=== PATIENT | female | born 1970 ===

== ENCOUNTER 2016-11-09 12:26 | Emergency (ER) | payer BC ==
[2016-11-09 12:26] VITALS: BMI 27.4
[2016-11-09 12:55] VITALS: BP 106/66; PULSE 87; RESP 20; TEMP 98; O2SAT 100
--- NOTE | 2016-11-09 13:25 | C.PDOC ---
History Of Present Illness 46 year old female presents to the ED with complaints of redness and swelling to the front of the left knee for three days. Patient denies trauma, itchiness, fever, pain with movement or weight bearing. REDNESS, SWELLING FRONT L KNEE X 3 DAYS. NO TRAUMA. NO FEVER, PAIN, ITCH. NO ASSOC W WT BEAR, MOVEMENT EXAM NAD EXT MILD SWELL ANT L KNEE AROM WO DIFF NONTEND SKIN ?INSECT BITE ANT L KNEE W MIN LOCAL ERYTHEMA. NONTEND, NO FLUCTUANCE, LYMPHANGITIS Time Seen by Provider: 11/09/16 13:01 Chief Complaint (Nursing): Lower Extremity Problem/Injury History Per: Patient History/Exam Limitations: no limitations Onset/Duration Of Symptoms: Days (3 days ) Current Symptoms Are (Timing): Still Present Recent travel outside of the [place]: No Past Medical History Reviewed: Historical Data, Nursing Documentation, Vital Signs Vital Signs: Last Vital Signs Temp 98 F 11/09/16 12:54 Pulse 87 11/09/16 12:54 Resp 20 11/09/16 12:54 BP 106/66 11/09/16 12:54 Pulse Ox 100 11/09/16 13:45 - Medical History PMH: Arthritis, Gastritis Surgical History: Back Surgery, Family History: States: Unknown Family Hx - Social History Hx Alcohol Use: No Hx Substance Use: No - Immunization History Hx Tetanus Toxoid Vaccination: No Hx Influenza Vaccination: No Hx Pneumococcal Vaccination: No Review Of Systems Constitutional: Negative for: Fever, Chills Cardiovascular: Negative for: Chest Pain, Palpitations Respiratory: Negative for: Cough, Shortness of Breath Gastrointestinal: Negative for: Nausea, Vomiting Musculoskeletal: Positive for: Other (left knee redness and swelling ) Neurological: Negative for: Weakness, Numbness Physical Exam - Physical Exam Appears: Non-toxic, No Acute Distress Skin: Warm, Dry, Other (Questionable insect bite to anterior left knee ) Head: Atraumatic, Normacephalic Eye(s): bilateral: Normal Inspection, PERRL, EOMI Neck: Supple Chest: Symmetrical, No Deformity Cardiovascular: Rhythm Regular, No Murmur Respiratory: Normal Breath Sounds, No Rales, No Rhonchi, No Wheezing Extremity: Normal ROM (AROM without difficulty ), No Tenderness, No Pedal Edema , No Calf Tenderness, Capillary Refill (good capillay refill, less than two seconds ), No Deformity, Swelling (to anterior left knee with minimal local erythema ), Other (No fluctuance or lymphangitis ) ED Course And Treatment O2 Sat by Pulse Oximetry: 100 (room air ) Disposition Counseled Patient/Family Regarding: Diagnosis, Need For Followup, Rx Given - Disposition Referrals: Clinic,Med Surg [Primary Care Provider] - Disposition: HOME/ ROUTINE Disposition Time: 13:45 Condition: GOOD Prescriptions: Cephalexin [cephalexin] 500 mg PO Q6 #28 cap Instructions: Cellulitis (ED) Forms: [employer] (Peruvian) Print Language: SOUTH KOREAN - Clinical Impression Clinical Impression: Cellulitis - Scribe Statement The provider has reviewed the documentation as recorded by the Scribe Minerva Stuart All medical record entries made by the Jjibanabel were at my direction and personally dictated by me. I have reviewed the chart and agree that the record accurately reflects my personal performance of the history, physical exam, medical decision making, and the department course for this patient. I have also personally directed, reviewed, and agree with the discharge instructions and disposition.
== END 2016-11-09 14:25 | disposition home or self-care (01) ==
LOC: SUPCPDRO 12:26 → C.ER 12:26
DX: L03.116 Cellulitis of left lower limb (principal)

== ENCOUNTER 2018-06-06 15:04 | Emergency (ER) | payer BC ==
[2018-06-06 16:15] VITALS: BMI 35.2
--- NOTE | 2018-06-06 16:57 | C.PDOC ---
History Of Present Illness 48 year old female presents to ED with complaint of back pain and swelling to the bilateral feet and ankles for the past 2 days. Patient had spinal fusion surgery 3 months ago. She states that she has been taking Lyrica for her pain, but did not take it today. Patient states that she has more pain with walking, so she doesn't walk very much. Patient denies numbness, weakness, and urinary/ bowel incontinence. Time Seen by Provider: 06/06/18 16:23 Chief Complaint (Nursing): Lower Extremity Problem/Injury History Per: Patient History/Exam Limitations: no limitations Onset/Duration Of Symptoms: Days (2) Current Symptoms Are (Timing): Still Present Past Medical History Reviewed: Historical Data, Nursing Documentation, Vital Signs Vital Signs: Last Vital Signs Temp 98.1 F 06/06/18 16:16 Pulse 79 06/06/18 16:16 Resp 17 06/06/18 16:16 BP 117/79 06/06/18 16:16 Pulse Ox 100 06/06/18 16:16 - Medical History PMH: Arthritis, Fibromyalgia, Gastritis Surgical History: Back Surgery ([place], [place]), Family History: States: Unknown Family Hx - Social History Hx Alcohol Use: No Hx Substance Use: No - Immunization History Hx Tetanus Toxoid Vaccination: No Hx Influenza Vaccination: No Hx Pneumococcal Vaccination: No Review Of Systems Genitourinary: Negative for: Incontinence Musculoskeletal: Positive for: Back Pain, Leg Pain (swelling to the bilateral feet and ankles) Neurological: Negative for: Weakness, Numbness Physical Exam - Physical Exam Appears: Well, Non-toxic, No Acute Distress Skin: Normal Color, Warm, Dry Head: Atraumatic, Normacephalic Neck: Normal ROM, Supple Chest: Symmetrical, No Deformity Cardiovascular: Rhythm Regular, No Murmur Respiratory: No Accessory Muscle Use, No Rales, No Rhonchi, No Wheezing Gastrointestinal/Abdominal: Soft, No Tenderness Extremity: Capillary Refill (<2 seconds), Other (trace pedal edema along the bilateral ankles) Extremity: Bilateral: Atraumatic, Normal Color And Temperature, Normal ROM Pulses: Left Dorsalis Pedis: Normal, Right Dorsalis Pedis: Normal Neurological/Psych: Oriented x3, Normal Speech, Normal Cognition, Normal Motor, Normal Sensation Gait: Steady ED Course And Treatment - Laboratory Results Result Diagrams: 06/06/18 17:30 06/06/18 17:30 O2 Sat by Pulse Oximetry: 100 (in RA) Medical Decision Making Medical Decision Making: Plan: Labs ordered with CMP, CBC, and d-dimer Patient given Decadron and Toradol Disposition - Disposition Referrals: [facility] [Outside] Disposition: HOME/ ROUTINE Disposition Time: 18:55 Condition: STABLE Additional Instructions: COME TOMORROW AT 8AM FOR VENOUS DOPPLER OF THE BILATERAL LOWER EXTREMITY. D- DIMER WAS (+) RETURN SOONER IF WORSENED. Instructions: Deep Vein Thrombosis (Blood Clots in the Legs) Forms: [employer] (Vietnamese) Print Language: LIBERIAN - Clinical Impression Clinical Impression: Leg edema - PA / CONTROL SYSTEMS SPECIALIST / Resident Statement MD/DO has reviewed & agrees with the documentation as recorded. (Dulce Horta) - Scribe Statement The provider has reviewed the documentation as recorded by the Scribe (Dulce Horta) All medical record entries made by the Scribe were at my direction and personally dictated by me. I have reviewed the chart and agree that the record accurately reflects my personal performance of the history, physical exam, medical decision making, and the department course for this patient. I have also personally directed, reviewed, and agree with the discharge instructions and disposition.
[2018-06-06] MEDS ORDERED: Dexamethasone 4 mg/1 ml IVP STA (17:27)
[2018-06-06] MEDS ORDERED: Dexamethasone 4 mg/1 ml ONE (17:35)
[2018-06-06 17:38] LABS: BASO % 0.4 % (0.0-2.0); EOS # 0.2 K/uL (0.0-0.7); HEMOGLOBIN 12.9 g/dL (11.0-16.0); LYMPH # 2.4 K/uL (1.0-4.3); MEAN CELL VOLUME 89.1 fL (81.0-99.0); MEAN CORPUSCULAR HEMOGLOBIN 30.8 pg (27.0-31.0); MEAN CORPUSCULAR HGB CONC 34.6 g/dL (33.0-37.0); MEAN PLATELET VOLUME 8.7 fL (7.2-11.7); MONO # 0.5 K/uL (0.0-0.8); MONO % 6.1 % (0.0-10.0); NEUT # 5.6 K/uL (1.8-7.0); NEUT % 64.5 % (50.0-75.0); NRBC % 0.1 % (0.0-2.0); RBC 4.18 Mil/uL (3.80-5.20); RED CELL DISTRIBUTION WIDTH 13.4 % (11.5-14.5); WHITE BLOOD COUNT 8.7 K/uL (4.8-10.8)
[2018-06-06 17:46] LABS: INR 1.1; PROTHROMBIN TIME 11.5 SECONDS (9.7-12.2)
[2018-06-06 17:51] LABS: ALB/GLOB RATIO 1.3 (1.0-2.1); ALBUMIN 4.2 g/dL (3.5-5.0); ALT/SGPT 28 U/L (9-52); AST/SGOT 36 U/L (14-36); BLOOD UREA NITROGEN 10 mg/dL (7-17); CALCIUM 9.5 mg/dl (8.6-10.4); GFR NON-AFRICAN AMERICAN > 60
[2018-06-06 18:02] LABS: B-TYPE NATRIURETIC PEPTIDE 43.4 pg/mL (0-450)
[2018-06-06] MEDS ORDERED: Enoxaparin 40 mg Syringe SC STA (18:34)
[2018-06-06] MEDS ORDERED: Enoxaparin 80 mg Syringe ONE (19:04)
[2018-06-06 19:21] VITALS: BP 136/78; PULSE 88; RESP 18; TEMP 98.2; O2SAT 98
== END 2018-06-06 19:19 | disposition home or self-care (01) ==
LOC: C.ER 15:04
DX: R60.0 Localized edema (principal); M79.7 Fibromyalgia
CPT/HCPCS: 80053; 81025; 83880; 85025; 85378; 85610; 85730; 96372; 96374; 96375; 99284; J1100; J1650; J1885

== ENCOUNTER 2018-06-07 08:53 | Emergency (ER) | payer BC ==
[2018-06-07 08:54] VITALS: BMI 35.2
[2018-06-07 09:00] VITALS: BP 102/62; PULSE 80; RESP 18; TEMP 97.9; O2SAT 99
--- NOTE | 2018-06-07 09:15 | C.PDOC ---
History Of Present Illness Pt is a 30 y o F who is 3 months s/p spinal surgery and presented to the ED yesterday for leg pain/swelling. Patient had an elevated d dimer and doppler studies were unavailable at the time of her evaluation so she was instructed to RTED today for b/l venous dopplers to r/o DVT. Patient denies any dizziness, syncope, sob, cp or any other symptoms at this time.Of note, patient's PCP is in [place], [place]. Time Seen by Provider: 06/07/18 09:06 Chief Complaint (Nursing): Lower Extremity Problem/Injury History Per: Patient History/Exam Limitations: no limitations Onset/Duration Of Symptoms: Days Current Symptoms Are (Timing): Still Present Severity: Moderate Past Medical History Reviewed: Historical Data, Nursing Documentation, Vital Signs Vital Signs: Last Vital Signs Temp 97.9 F 06/07/18 08:56 Pulse 80 06/07/18 08:56 Resp 18 06/07/18 08:56 BP 102/62 06/07/18 08:56 Pulse Ox 99 06/07/18 08:56 - Medical History PMH: Arthritis, Fibromyalgia, Gastritis Surgical History: Back Surgery ([place], [place]), Family History: States: No Known Family Hx - Social History Hx Alcohol Use: No Hx Substance Use: No - Immunization History Hx Tetanus Toxoid Vaccination: No Hx Influenza Vaccination: No Hx Pneumococcal Vaccination: No Review Of Systems Cardiovascular: Negative for: Chest Pain Respiratory: Negative for: Shortness of Breath Musculoskeletal: Positive for: Leg Pain Neurological: Negative for: Dizziness Physical Exam - Physical Exam Appears: Well, Non-toxic, No Acute Distress Skin: Normal Color, Warm, Dry Extremity: Normal ROM, Tenderness, No Pedal Edema, No Swelling Extremity: Bilateral: Normal Color And Temperature Pulses: Left Dorsalis Pedis: Normal, Right Dorsalis Pedis: Normal Neurological/Psych: Oriented x3, Normal Speech, Normal Cognition, Normal Motor, Normal Sensation Gait: Steady ED Course And Treatment O2 Sat by Pulse Oximetry: 99 Medical Decision Making Medical Decision Making: Patient presents for BLE dopplers. 09:45 Dopplers reported as negative. Results d/w patient. Patient instructed to f/u w/pcp and RTED for new, worsening or concerning symptoms. Patient stable for d/c. Patient verbalized understanding of d/c instructions. 09:57 Patient left ED w/o d/c instructions. Disposition Counseled Patient/Family Regarding: Studies Performed, Diagnosis, Need For Followup - Disposition Disposition: HOME/ ROUTINE Disposition Time: 09:45 Condition: GOOD Additional Instructions: YARELIS VELASCO, thank you for letting us take care of you today. Your provider was Marisa Villanueva MD and you were treated for FOLLOW UP. The emergency medical care you received today was directed at your acute symptoms. If you were prescribed any medication, please fill it and take as directed. It may take several days for your symptoms to resolve. Return to the Emergency Department if your symptoms worsen, do not improve, or if you have any other problems. Please contact your doctor for a follow up appointment in 2-3 days. Bring any paperwork you were given at discharge with you along with any medications you are taking to your follow up visit. Our treatment cannot replace ongoing medical care by a primary care provider outside of the emergency department. Thank you for allowing the [facility] team to be part of your care today. Instructions: Dependent Edema (DC), Muscle and Bone Pain (DC) Forms: [employer] (Tajik), General Discharge Instructions - POA Present On Arrival: None - Clinical Impression Clinical Impression: Leg pain, bilateral, Leg edema
--- NOTE | 2018-06-08 13:50 | VASCLAB ---
Date of service: 06/07/2018 PROCEDURE: Lower Extremity Venous Duplex Exam. HISTORY: Swelling, Pain PRIORS: None. TECHNIQUE: Bilateral common femoral, femoral, popliteal and posterior tibial, peroneal and great saphenous veins were evaluated. Flow was assessed with color Doppler, compressibility, assessment of phasic flow and augmentation response. Report prepared by JORGE Souza FINDINGS: RIGHT: 1. Common Femoral Vein: 1.1. Compressibility - Fully compressible: Thrombus - None : Flow - Phasic: Augmentation -Normal: Reflux - None. 2. Femoral Vein: 2.1. Compressibility - Fully compressible: Thrombus - None : Flow - Phasic: Augmentation -Normal: Reflux - None. 3. Popliteal Vein: 3.1. Compressibility - Fully compressible: Thrombus - None : Flow - Phasic: Augmentation -Normal: Reflux - None. 4. Posterior Tibial Vein: 4.1. Compressibility - Fully compressible: Thrombus - None: Flow - Phasic: Augmentation -Normal: Reflux - None. 5. Peroneal Vein: 5.1. Compressibility - Fully compressible: Thrombus - None: Flow - Phasic: Augmentation -Normal: Reflux - None. 6. Great Saphenous Vein: 6.1. Compressibility - Fully compressible: Thrombus - None: Flow - Phasic: Augmentation - Normal: Reflux - None. LEFT: 1. Common Femoral Vein: 1.1. Compressibility - Fully compressible: Thrombus - None: Flow - Phasic: Augmentation -Normal: Reflux - None. 2. Femoral Vein: 2.1. Compressibility - Fully compressible: Thrombus - None: Flow - Phasic: Augmentation -Normal: Reflux - None. 3. Popliteal Vein: 3.1. Compressibility - Fully compressible: Thrombus - None : Flow - Phasic: Augmentation -Normal: Reflux - None. 4. Posterior Tibial Vein: 4.1. Compressibility - Fully compressible: Thrombus - None: Flow - Phasic: Augmentation -Normal: Reflux - None. 5. Peroneal Vein: 5.1. Compressibility - Fully compressible: Thrombus - None: Flow - Phasic: Augmentation -Normal: Reflux - None. 6. Great Saphenous Vein: 6.1. Compressibility - Fully compressible: Thrombus - None: Flow - Phasic: Augmentation - Normal: Reflux - None. OTHER FINDINGS: Right: None significant. Left: None significant. IMPRESSION: Right: No evidence of deep or superficial vein thrombosis of the right lower extremity. Normal valve function noted of the right side. Left: No evidence of deep or superficial vein thrombosis of the left lower extremity. Normal valve function noted of the left side.
== END 2018-06-07 09:50 | disposition home or self-care (01) ==
LOC: C.ER 08:53
DX: R60.0 Localized edema (principal); M79.605 Pain in left leg; M79.604 Pain in right leg